=== PATIENT | female | born 1980 | race Caucasian/White ===

== ENCOUNTER 2022-06-01 20:58 | Inpatient (IN) | payer BC ==
[~2022-06-01] VITALS: Ht 160 cm; Wt 80.5 kg
[~2022-06-01 20:58] MED LIST: AMOXIL500 MG PO; TRAMADOL HCL50 MG PO
[2022-06-01 20:59] VITALS: BP 205/124
[2022-06-01 21:20] VITALS: BP 200/100
[2022-06-01 21:30] LABS: BASO # 0.1 10*3/uL (0.0-0.1); BASO % 0.5 % (0.0-1.0); EOS # 0.1 10*3/uL (0.0-0.4); EOS % 0.7 % (1.0-4.0); HEMATOCRIT 40.4 % (37.0-47.0); LYMPH # 2.4 10*3/uL (1.3-4.4); LYMPH % 17.2 % (27.0-41.0); MEAN CELL VOLUME 84.9 fl (81.0-99.0); MEAN CORPUSCULAR HGB 28.8 pg (27.0-31.0); MEAN CORPUSCULAR HGB CONC 33.9 g/dl (33.0-37.0); MONO # 0.5 10*3/uL (0.1-1.0); MONO % 3.8 % (3.0-9.0); NEUT % 77.4 % (47.0-73.0); PLATELET COUNT AUTOMATED 265 10*3/uL (130-400); RED BLOOD COUNT 4.76 10*6/uL (4.10-5.10); RED CELL DISTRI WIDTH 12.8 % (0-14.5); WHITE BLOOD COUNT 14.2 10*3/uL (4.8-10.8)
[2022-06-01 21:31] VITALS: BP 186/95
[2022-06-01 21:51] LABS: ALKALINE PHOSPHATASE 55 U/L (46-116); BUN 15 mg/dl (9-23); CHLORIDE 102 mmol/L (98-107); CREATININE 0.98 mg/dL (0.55-1.02); POTASSIUM 3.8 mmol/L (3.4-5.1); SGPT/ALT 13 U/L (10-49); SODIUM 136 mmol/L (136-145); THYROID STIM HORMONE (HS) 4.458 uIU/ml (0.550-4.780); TOTAL PROTEIN 7.2 gm/dL (6.0-8.0)
[2022-06-01 21:59] VITALS: BP 175/100
[2022-06-01 22:38] VITALS: BP 142/78
[2022-06-01 23:00] VITALS: BP 130/71
[2022-06-02 00:05] VITALS: BP 145/75
[2022-06-02 02:50] VITALS: BP 129/78
[2022-06-02 05:32] VITALS: BP 131/77
[2022-06-02 05:50] VITALS: BP 156/92
[2022-06-02] MEDS ORDERED: ZESTORETIC 20-1 EACH PO (05:55)
[2022-06-02] MEDS ORDERED: METFORMIN HYDR500 MG PO (05:55)
[2022-06-02] MEDS ORDERED: METOPROLOL SUC100 M1 PO (05:56)
[2022-06-02] MEDS ORDERED: NORMODYNE,TRAN200 MG PO (05:56)
[2022-06-02 08:00] VITALS: BP 152/83
[2022-06-02] MEDS ORDERED: ZESTRIL40 MG PO (11:38)
[2022-06-02] MEDS ORDERED: HYDR25T PO (11:38)
== END 2022-06-02 15:16 | disposition home or self-care (01) | DRG 305 ==
LOC: ED 20:58 → EDHOLD 06-02 04:49 → 5E 06-02 05:34
PROVIDERS: Emergency Medicine; ADMIT Internal Medicine; ATTEND Internal Medicine
DX: I16.1 Hypertensive emergency (principal); I10 Essential (primary) hypertension; E11.65 Type 2 diabetes mellitus with hyperglycemia; D72.825 Bandemia; E83.42 Hypomagnesemia; Z88.8 Allergy status to other drugs, medicaments and biological substances

== ENCOUNTER 2023-02-15 23:31 | Emergency (ER) | payer OTHER, BC ==
[~2023-02-15] VITALS: Ht 167.6 cm; Wt 95.3 kg
[~2023-02-15 23:31] MED LIST changes: +HYDR25T PO; +METFORMIN HYDR500 MG PO; +METOPROLOL SUC100 M1 PO; +NORMODYNE,TRAN200 MG PO; +ZESTORETIC 20-1 EACH PO; +ZESTRIL40 MG PO
[2023-02-15 23:57] LABS: BASO % 0.5 % (0.0-1.0); EOS # 0.1 10*3/uL (0.0-0.4); EOS % 1.1 % (1.0-4.0); HEMATOCRIT 36.8 % (37.0-47.0); LYMPH # 2.8 10*3/uL (1.3-4.4); LYMPH % 32.8 % (27.0-41.0); MEAN CELL VOLUME 87.2 fl (81.0-99.0); MEAN CORPUSCULAR HGB 30.6 pg (27.0-31.0); MEAN CORPUSCULAR HGB CONC 35.1 g/dl (33.0-37.0); MONO # 0.4 10*3/uL (0.1-1.0); MONO % 4.9 % (3.0-9.0); NEUT # 5.1 10*3/uL (2.3-7.9); NEUT % 60.2 % (47.0-73.0); PLATELET COUNT AUTOMATED 278 10*3/uL (130-400); RED BLOOD COUNT 4.22 10*6/uL (4.10-5.10); RED CELL DISTRI WIDTH 12.5 % (0-14.5); WHITE BLOOD COUNT 8.5 10*3/uL (4.8-10.8)
[2023-02-16 00:17] LABS: POTASSIUM 3.8 mmol/L (3.4-5.1)
[2023-02-16] MEDS ORDERED: HYDROCODONE-AC1 EAC1 PO (04:18)
[2023-02-16] MEDS ORDERED: METHOCARBAMOL500 M1 PO (04:18)
== END 2023-02-16 04:45 | disposition home or self-care (01) ==
LOC: ED 23:31
PROVIDERS: Internal Medicine
DX: S32.018A Other fracture of first lumbar vertebra, initial encounter for closed fracture (principal); S32.028A Other fracture of second lumbar vertebra, initial encounter for closed fracture; S32.038A Other fracture of third lumbar vertebra, initial encounter for closed fracture; E11.65 Type 2 diabetes mellitus with hyperglycemia; I12.9 Hypertensive chronic kidney disease with stage 1 through stage 4 chronic kidney disease, or unspecified chronic kidney disease; N18.31 Chronic kidney disease, stage 3a; E11.22 Type 2 diabetes mellitus with diabetic chronic kidney disease; Z91.018 Allergy to other foods; V89.2XXA Person injured in unspecified motor-vehicle accident, traffic, initial encounter; Y93.89 Activity, other specified; Y92.410 Unspecified street and highway as the place of occurrence of the external cause; Y99.8 Other external cause status